=== PATIENT | male | born 1950 | race Hispanic/Latino ===

== ENCOUNTER 2018-04-25 08:29 | Day surgery (SDC) | payer OTHER ==
[~2018-04-25] VITALS: Ht 167.6 cm; Wt 115.7 kg
[~2018-04-25 08:29] MED LIST: SODIUM CHLORIDE 0.9% 1000ML 1,000 ML IV ONE
[2018-04-25 09:11] VITALS: BP 100/78
[2018-04-25] MEDS ORDERED: PROPOFOL 1000 MG/100 ML 100 ML IV ONE (10:24)
[2018-04-25 10:58] VITALS: BP 107/73
[2018-04-25 11:03] VITALS: BP 108/84
[2018-04-25 11:08] VITALS: BP 110/71
[2018-04-25 11:20] VITALS: BP 114/77
== END 2018-04-25 11:32 | disposition home or self-care (01) ==
LOC: DAH 08:29 → ENDO 08:29
PROVIDERS: ATTEND Internal Medicine Gastroenterology
DX: D12.0 Benign neoplasm of cecum (principal); D12.3 Benign neoplasm of transverse colon; D12.5 Benign neoplasm of sigmoid colon; D12.2 Benign neoplasm of ascending colon; K29.50 Unspecified chronic gastritis without bleeding; Z86.010 Personal history of colon polyps; K22.8 Other specified diseases of esophagus; K44.9 Diaphragmatic hernia without obstruction or gangrene; K31.89 Other diseases of stomach and duodenum; Z98.0 Intestinal bypass and anastomosis status; E66.01 Morbid (severe) obesity due to excess calories; Z98.890 Other specified postprocedural states; Z68.39 Body mass index [BMI] 39.0-39.9, adult; G47.30 Sleep apnea, unspecified; R10.30 Lower abdominal pain, unspecified; R19.4 Change in bowel habit
CPT/HCPCS: 43239; 45380; 45385; 88305; A4606; J2704; J7030

== ENCOUNTER → 2018-05-16 | Outpatient (CLI) | payer OTHER ==
[2018-05-16 13:28] LABS: CREATININE 0.8 mg/dL (0.5-1.5)
== END | disposition home or self-care (01) ==
LOC: LAB 12:55
PROVIDERS: ATTEND Internal Medicine Gastroenterology
DX: R10.30 Lower abdominal pain, unspecified (principal)
CPT/HCPCS: 36415; 82565; 84520

== ENCOUNTER → 2018-06-14 | Outpatient (CLI) | payer OTHER ==
[~2018-06-14] MED LIST changes: +IOHEXOL 350 MG/ML 100ML INFUS..BTL IV ONE; -SODIUM CHLORIDE 0.9% 1000ML 1,000 ML IV ONE
== END | disposition home or self-care (01) ==
LOC: RAH 09:55
PROVIDERS: ATTEND Internal Medicine Gastroenterology
DX: K57.90 Diverticulosis of intestine, part unspecified, without perforation or abscess without bleeding (principal); N28.1 Cyst of kidney, acquired
CPT/HCPCS: 74178; Q9967